=== PATIENT | female | born 1955 | race Caucasian/White ===

== ENCOUNTER 2025-03-28 08:08 | Day surgery (SDC) | payer MEDICARE, OTHER ==
[2025-03-27 13:51] VITALS: BMI 40.0
[2025-03-28 09:49] LABS: Hematocrit 48.2 % (34.9-44.5); Hemoglobin 15.3 g/dL (12.0-15.5)
[2025-03-28 10:02] LABS: Anion Gap 16 mmol/L (10-20); BUN (Urea Nitrogen) 16 mg/dL (9.8-20.1); Calc. Creatinine Clearance 83 mL/min (70-130); Calcium 9.4 mg/dL (7.8-10.44); Carbon Dioxide 29 mmol/L (23-31); Chloride 102 mmol/L (98-107); Glucose 118 mg/dL (83-110); Potassium 3.8 mmol/L (3.5-5.1); Sodium 143 mmol/L (136-145)
[2025-03-28] MEDS ORDERED: PROPOFOL 20 ML ONE ×2 (10:41→12:23)
[2025-03-28] MEDS ORDERED: CEFAZOLIN 1 GM VIAL ONE (10:41)
[2025-03-28] MEDS ORDERED: oFLOXacin 0.3% Opth 5 ML BOT ONE (10:42)
[2025-03-28] MEDS ORDERED: Ondansetron PF 4 MG/2 ML Vial ONE (10:43)
[2025-03-28] MEDS ORDERED: Lidocaine 1% PF 5 ML VIAL ONE (10:43)
[2025-03-28] MEDS ORDERED: HYDROcodone/Acetaminophen 5/325 mg Tablet ONE (16:00)
== END 2025-03-28 17:00 | disposition home or self-care (01) ==
LOC: CSHSDC 08:08
PROVIDERS: ATTEND Otolaryngology Plastic Surgery within the Head & Neck
PROC: 09B60ZZ Excision of Left Middle Ear, Open Approach (ICD-10-PCS; principal; 2025-03-28)
DX: D18.09 Hemangioma of other sites (principal); J38.01 Paralysis of vocal cords and larynx, unilateral; J30.0 Vasomotor rhinitis; H90.3 Sensorineural hearing loss, bilateral; I10 Essential (primary) hypertension; Z87.59 Personal history of other complications of pregnancy, childbirth and the puerperium; Z90.710 Acquired absence of both cervix and uterus; Z90.49 Acquired absence of other specified parts of digestive tract; Z90.89 Acquired absence of other organs; Z98.890 Other specified postprocedural states; Z79.899 Other long term (current) drug therapy
CPT/HCPCS: 69550; 80048; 85014; 85018; 93005; C1713; J0169; J0690; J1100; J2405; J2704; J3010; 36415; 88307; 88341; 88342; 93010